=== PATIENT | male | born 1975 | race Caucasian/White ===

== ENCOUNTER 2025-04-10 14:13 | Emergency (ER) | payer OTHER, SELFPAY ==
[2025-04-10 14:24] VITALS: BP 136/90
[2025-04-10] MEDS: DELTASONE 50 MG PO (16:16)
[2025-04-10] MEDS: VALIUM 5 MG PO (16:16)
--- NOTE | 2025-04-10 16:16 | ED.GENMED ---
History of Present Illness
General
Chief Complaint: Musculo-Skeletal Complaint
Source: patient
Exam Limitations: none
Time Seen by Provider: 04/10/25 15:58
History of Present Illness
History of Present Illness:
49-year-old male complaining of buttock pain with shooting pain down the left leg. Started 4 to 5 days ago. No weakness in the leg. No bowel or bladder issues. No abdominal pain no nausea or vomiting. No other complaints. Pain is worse with
flexion and ambulation
Past History
Past History
ED Past Medical History: None
ED Past Surgical History: None
Social History
Tobacco: Smoker
Alcohol: Occasional
Drug: Marijuana
Personal: Single
Living: with family
Employment: Employed
Review of Systems
Review of Systems
All Other Systems: Not applicable
Constitutional: Denies fever
ABD/GI: Reports no symptoms
Phy Exam
Physical Exam
Physical Exam:
GENERAL: Alert and oriented. Currently standing changing. In no distress. Able to fully ambulate
EYE: Orbits normal.
NECK: Supple
CARDIAC: Regular rate and rhythm
LUNGS: No respiratory distress
ABDOMEN: Soft, without focal tenderness or distention
NEUROLOGICAL: Alert and oriented , grossly non-focal
SKIN: Warm and dry, no rash or lesion, no discoloration, skin intact.
MUSCULOSKELETAL: No edema,no deformity.Good color. Good lower extremity strength. Plantar dorsiflexion normal. Some pain in the buttock with left straight leg raising. No pain with hip rotation. No leg swelling. No warmth no erythema. Good
distal pulses and color.
PSYCH: Normal and appropriate interaction.
Course
Orders/Labs/Results
Orders:
Orders
04/10/25 16:10
Diazepam [Valium] 5 mg PO NOW STA
Ketorolac [Toradol] 60 mg IM NOW STA
Lumbar Spine Complete, 4 View [CR Lumbar Spine Comp Min 4 Vw*] Urgent
Comment:
Reason For Exam: Nontraumatic left buttock pain/radicular
US Periph Venous LOWER Ext LT Urgent
Comment:
Reason For Exam: Left leg pain
04/10/25 16:12
Prednisone [Deltasone] 50 mg PO NOW STA
Vital Signs
Initial and Last Documented VS:
Initial Vital Signs
Temp Pulse Resp BP Pulse Ox
98.5 F 90 19 136/90 100
04/10/25 14:24 04/10/25 14:24 04/10/25 14:24 04/10/25 14:24 04/10/25 14:24
Last Documented Vital Signs
Temp Pulse Resp BP Pulse Ox
98.5 F 90 19 136/90 100
04/10/25 14:24 04/10/25 14:24 04/10/25 14:24 04/10/25 14:24 04/10/25 16:17
MDM/Problems Addressed
Differential Diagnosis Includes:
Nothing on clinical exam supports any high concern for DVT or inflammatory or vascular process in the leg. He has great distal pulses and color. We will get a leg ultrasound done for completeness. I am very highly suspicious of radiculopathy.
Pain starts in the buttock and shoots down the leg. Cannot justify emergent MRI given the normal neurologic exam no infectious symptoms etc. We will do a course of steroids pain management plain x-ray and ultrasound.
*Radiology
Radiology exam reviewed: preliminary read by ED provider (Negative acute x-ray. Some foramen narrowing L4-5, L5-S1) and radiology read reviewed (Negative ultrasound)
*Pulse Oximetry
SaO2: 100
Oxygen Mode of Delivery: Room air
Patient hypoxic: no
*Critical Care Note
Total Time (30-74mins, 75-104mins- exclusive of procedures): Not Applicable
Update Note
Update Note:
Patient clinically stable. Symptom complex all consistent with radiculopathy. Course of steroids pain management, muscle relaxer and orthopedic follow-up
ED Attending Note
-
Portions of this chart may have been created with voice recognition software.� Occasional wrong word or��sound alike� substitutions may have occurred due to the inherent limitations of voice recognition software.
Discharge Plan
Departure
Patient Disposition: Home (Routine Discharge)
Date of Disposition: 04/10/25
Time of Disposition: 18:23
Patient with high blood pressure during this ER visit?: Yes
Discharge Problem:
Left lower leg radiculopathy, low back pain
Instructions: Radiculopathy of the neck and back (including sciatica) (DC), Low back pain - ED (DC), BLOOD PRESSURE
Prescriptions:
New
prednisone 10 mg tablet
10 mg PO DAILY Qty: 30 0RF
Rx Instructions:
4 tablets day 1. Then 1 less tablet every third day until gone
cyclobenzaprine 10 mg tablet
10 mg PO TID PRN (Reason: muscle spasm) Qty: 14 0RF
hydrocodone-acetaminophen 5-325 mg tablet
1 tab PO Q6H PRN (Reason: Pain) Qty: 10 0RF
No Action
sucralfate 1 GRAM tablet
1 gm PO ACHS Qty: 20 0RF
Referrals:
Edgar Mayorga MD [Family Provider, Family Practice] - Follow up in 2-3 days
Ricardo Stone MD [Active, Orthopedics] - Next open appointment
Activity Restrictions/Additional Instructions:
I gave you the name of a spine orthopedist you can call for close follow-up
Your prescriptions were sent to your pharmacy
Take the prednisone as directed
Muscle relaxer as needed. It will cause drowsiness
Only use the narcotic pain medication for more severe pain.
Do not take the stronger pain medication with the muscle relaxer
You could continue taking Tylenol and an occasional Advil
Return sooner with increased pain fever weakness to the leg bowel or bladder issues or any other concerning symptoms
Interventions
Interventions:
*Risk Screen - Suicide Last Done: 04/10/25 14:24
*General Assessment Last Done: 04/10/25 14:24
*Neglect/Abuse Screening Last Done: 04/10/25 14:24
Discharge Date and Time
Print Language: [id number]
[2025-04-10] MEDS: TORADOL 60 MG IM (16:17)
== END 2025-04-10 18:39 | disposition home or self-care (01) ==
LOC: EMR 14:13
PROVIDERS: EMERGENCY PHYSICIAN Emergency Medicine; FAMILY PHYSICIAN Family Medicine
DX: M54.10 Radiculopathy, site unspecified (principal); M54.50 Low back pain, unspecified; M79.605 Pain in left leg; F17.200 Nicotine dependence, unspecified, uncomplicated
CPT/HCPCS: 99284; 96372; 72110; 93971